=== PATIENT | female | born 1950 | race Caucasian/White ===

== ENCOUNTER 2020-10-09 20:50 | Emergency (ER) | payer MEDICARE, OTHER ==
[~2020-10-09] VITALS: Ht 170.2 cm; Wt 117.9 kg
[~2020-10-09 20:50] MED LIST: CIPRO500 MG PO; COQ-10100 MG PO; DIFLUCAN150 MG PO; LOPRESSOR50 PO; MACROBID 100 M100 M1 PO; NAPROSYN500 MG PO; PYRIDIUM100 M1 PO; UNICOMPLEX M TA1 TA1 PO
[2020-10-09] MEDS ORDERED: MACROBID 100 M100 M1 PO (21:40)
[2020-10-09] MEDS ORDERED: PYRIDIUM200 MG PO (21:40)
[2020-10-09 21:53] VITALS: BP 175/94
[2020-10-09 21:56] LABS: URINE BILIRUBIN NEGATIVE (Negative); URINE BLOOD 3+ (Negative); URINE CLARITY CLEAR; URINE COLOR YELLOW; URINE GLUCOSE-RANDOM 2+ (Negative); URINE KETONES NEGATIVE (Negative); URINE NITRITE-REFLEX NEGATIVE (Negative); URINE PROTEIN 1+ (Negative); URINE UROBILINOGEN 0.2 E.U./dl (0.2-1.0)
[2020-10-09 22:09] LABS: URINE LEUKOCYTES-REFLEX 2+ (Negative)
[2020-10-09 22:12] LABS: CASTS None Seen /LPF (None Seen); SQUAMOUS 4-10 Moderate /LPF (0-3)
[2020-10-09 22:13] LABS: BACTERIA-REFLEX 1-9 Few /HPF (None Seen); CRYSTALS None Seen /LPF (None Seen); URINE RBC >20 Many /HPF (0-2)
== END 2020-10-09 21:54 | disposition home or self-care (01) ==
LOC: M.ERS 20:50
PROVIDERS: Emergency Medicine
DX: N39.0 Urinary tract infection, site not specified (principal); I10 Essential (primary) hypertension; E11.9 Type 2 diabetes mellitus without complications; M79.7 Fibromyalgia; Z88.0 Allergy status to penicillin; Z88.2 Allergy status to sulfonamides

== ENCOUNTER 2021-02-03 07:54 | Inpatient (IN) | payer MEDICARE, OTHER ==
[~2021-02-03] VITALS: Ht 170.2 cm; Wt 114.3 kg
[~2021-02-03 07:54] MED LIST changes: +PYRIDIUM200 MG PO
[2021-02-03 08:03] VITALS: BP 146/56
[2021-02-03 09:28] LABS: ICTOTEST (BILI CONFIRMATORY) Negative (Negative); URINE BILIRUBIN 1+ (Negative); URINE BLOOD 3+ (Negative); URINE CLARITY CLEAR; URINE COLOR YELLOW; URINE GLUCOSE-RANDOM 2+ (Negative); URINE KETONES 1+ (Negative); URINE LEUKOCYTES 1+ (Negative); URINE NITRITE POSITIVE (Negative); URINE PROTEIN 1+ (Negative)
[2021-02-03 09:37] LABS: BACTERIA >30 Many /HPF (None Seen); CASTS None Seen /LPF (None Seen); CRYSTALS None Seen /LPF (None Seen); RENAL EPITHELIAL CELLS 0-3 Few /LPF (None Seen); SQUAMOUS 0-3 Few /LPF (0-3); URINE RBC >20 Many /HPF (0-2); URINE WBC >25 Many /HPF (0-5)
[2021-02-03 10:01] LABS: ABSOLUTE LYMPHOCYTES 0.8 thou/uL (0.8-5.3); ABSOLUTE MONOCYTES 0.5 thou/uL (0.0-1.2); ABSOLUTE NEUTROPHILS 5.3 thou/uL (1.6-8.1); BASOPHILS 0.6 %; EOSINOPHILS 0.1 %; HEMATOCRIT 42.6 % (37.0-47.0); HEMOGLOBIN 14.4 gm/dL (12.0-15.0); LYMPHOCYTES 12.1 %; MCH 27.7 pg (26.0-34.0); MCHC 33.9 g/dL (28.0-37.0); MCV 81.8 fL (80.0-100.0); MONOCYTES 7.7 %; MPV 7.4 fl. (7.2-11.1); NUCLEATED RBCS 0 /100WBC; POLYS 79.5 %; RBC 5.21 mil/uL (4.20-5.00); RDW-CV 13.3 % (10.5-14.5); WBC 6.7 thou/uL (4.0-11.0)
[2021-02-03 10:13] LABS: PLATELET COUNT* 250 thou/uL (150-400)
[2021-02-03 10:24] LABS: CALCIUM 7.9 mg/dL (8.5-10.1); CREATININE 0.8 mg/dL (0.6-1.3); POTASSIUM 3.9 mmol/L (3.5-5.1)
[2021-02-03 10:28] LABS: ALBUMIN 2.5 g/dL (3.4-5.0); TOTAL BILIRUBIN 0.9 mg/dL (<0.1-1.0); TOTAL PROTEIN 6.8 g/dL (6.4-8.2)
[2021-02-03 13:00] VITALS: BP 133/49
[2021-02-03 17:00] VITALS: BP 134/56
[2021-02-03 21:21] VITALS: BP 159/88
[2021-02-03 22:20] VITALS: BP 167/86
[2021-02-03 22:22] VITALS: BP 159/88
[2021-02-04 05:35] VITALS: BP 138/42
[2021-02-04 05:44] LABS: HEMATOCRIT 39.7 % (37.0-47.0); HEMOGLOBIN 13.5 gm/dL (12.0-15.0); MCH 27.8 pg (26.0-34.0); MCHC 34.1 g/dL (28.0-37.0); MCV 81.4 fL (80.0-100.0); MPV 7.8 fl. (7.2-11.1); RBC 4.87 mil/uL (4.20-5.00); RDW-CV 13.2 % (10.5-14.5)
[2021-02-04 05:51] LABS: CALCIUM 7.6 mg/dL (8.5-10.1); CREATININE 0.8 mg/dL (0.6-1.3); POTASSIUM 3.9 mmol/L (3.5-5.1)
[2021-02-04] MEDS ORDERED: LOPRESSOR50 MG PO (07:30)
[2021-02-04 10:29] VITALS: BP 166/72
[2021-02-04 12:31] VITALS: BP 123/46
--- NOTE | 2021-02-04 13:39 | EKG ---
[place] [address] ELECTROCARDIOGRAM REPORT Name: PAGE HALLMAN I Room: [address] ADM IN M.R.#: [id number] Admission: 02/03/21 Attend Phys: Palomo Mirza Discharge: Date of : 54 Date of Service: 02/03/21 0808 Report #: [id number] THIS REPORT FOR: //name// [facility] ED Test Date: 2021-02-03 Test Time: 08:08:14 Pat Name: PAGE HALLMAN Department: Room: [address] Gender: F Real Estate Asset Manager: ANGELINE : 1950 Requested By: Bello Thornton Order Number: [id number] Georgette MD: Pietro Lora Measurements Intervals [place] Rate: 99 P: 43 [place]: 152 QRS: 11 QRSD: 89 T: 248 QT: 318 QTc: 408 Interpretive Statements Sinus rhythm LVH with secondary repolarization abnormality Compared to ECG 01/31/2021 18:20:13 Left ventricular hypertrophy now present Electronically Signed On 02-04-2021 13:38:59 CDT by Pietro Lora [email or web address] <ELECTRONICALLY SIGNED> By: Pietro Lora MD, [facility] 02/04/21 1338 0808 0808 Pietro Lora MD, [facility] /EPI
[2021-02-04 15:49] VITALS: BP 160/68
[2021-02-04 21:10] VITALS: BP 143/68
[2021-02-05 05:34] LABS: HEMATOCRIT 39.8 % (37.0-47.0); HEMOGLOBIN 13.3 gm/dL (12.0-15.0); MCH 27.5 pg (26.0-34.0); MCHC 33.5 g/dL (28.0-37.0); MPV 7.7 fl. (7.2-11.1); RBC 4.86 mil/uL (4.20-5.00); RDW-CV 13.1 % (10.5-14.5); WBC 8.9 thou/uL (4.0-11.0)
[2021-02-05 05:49] LABS: CALCIUM 7.9 mg/dL (8.5-10.1); CREATININE 0.7 mg/dL (0.6-1.3); POTASSIUM 3.7 mmol/L (3.5-5.1)
[2021-02-05 09:55] VITALS: BP 148/61
[2021-02-05 12:00] VITALS: BP 139/76
[2021-02-05] MEDS ORDERED: CEFDINIR300 MG PO (12:30)
[2021-02-05 13:33] VITALS: BP 139/76
== END 2021-02-05 14:18 | disposition home health service (06) | DRG 177 ==
LOC: M.ERS 07:54 → M.TBA-ER 09:04 → M.ORTHSURG 09:04
PROVIDERS: Emergency Medicine; Family Medicine; ADMIT Internal Medicine; ATTEND Internal Medicine
PROC: XW033H5 Introduction of Tocilizumab into Peripheral Vein, Percutaneous Approach, New Technology Group 5 (ICD-10-PCS; principal; 2021-02-03)
DX: U07.1 COVID-19 (principal); J96.01 Acute respiratory failure with hypoxia; J12.82 Pneumonia due to coronavirus disease 2019; N39.0 Urinary tract infection, site not specified; E87.1 Hypo-osmolality and hyponatremia; I10 Essential (primary) hypertension; E11.9 Type 2 diabetes mellitus without complications; M79.7 Fibromyalgia; B96.20 Unspecified Escherichia coli [E. coli] as the cause of diseases classified elsewhere; Z79.899 Other long term (current) drug therapy; Z88.0 Allergy status to penicillin; Z88.2 Allergy status to sulfonamides